=== PATIENT | male | born 1960 | race Caucasian/White ===

== ENCOUNTER 2022-06-13 19:16 | Inpatient (IN) ==
[2022-06-13 19:45] LABS: BASOPHILS % (AUTO) 0.4 % (0.2-1.0); HEMATOCRIT 39.4 % (42.0-54.0); LYMPHOCYTES # (AUTO) 0.3 X10^3/uL (1.3-2.9); LYMPHOCYTES % (AUTO) 2.7 % (21.0-51.0); MEAN CORPUSCULAR HGB CONC 35.7 g/dL (33.0-35.0); MEAN CORPUSCULAR VOLUME 89.7 fL (80.0-100.0); MEAN PLATELET VOLUME 8.2 fL (7.4-11.0); MONOCYTES # (AUTO) 0.1 x10^3/uL (0.3-0.8); MONOCYTES % (AUTO) 0.6 % (0.0-13.0); NEUTROPHILS # (AUTO) 10.7 x10^3/uL (2.2-4.8); NEUTROPHILS % (AUTO) 96.3 % (42.0-75.0); RED BLOOD COUNT 4.39 X10^6/uL (4.7-6.0); RED CELL DISTRIBUTION WIDTH 13.6 % (11.6-16.5); WHITE BLOOD COUNT 11.1 X10^3/uL (3.6-10.0)
[2022-06-13 19:53] LABS: ALANINE AMINOTRANSFERASE 85 Units/L (12-78); ALKALINE PHOSPHATASE 151 Units/L (46-116); ASPARTATE AMINO TRANSFERASE 66 Units/L (15-37); BLOOD UREA NITROGEN 18 mg/dL (7-18); CALCIUM 7.9 mg/dL (8.5-10.1); CARBON DIOXIDE 25.8 mmol/L (21-32); CHLORIDE 97 mmol/L (98-107); COR CA(FOR HYPOALB) 8.7 mg/dL (8.5-10.1); COR NA(FOR HYPERGLY) 132 mmol/L (136-145); CREATININE 1.29 mg/dL (0.70-1.30); SODIUM 131 mmol/L (136-145); TOTAL PROTEIN 6.2 g/dL (6.4-8.2); eGFR NON BLACK RACES > 60 (>60)
[2022-06-13 19:56] LABS: LACTIC ACID 1.5 mmol/L (0.4-2.0)
[2022-06-13 19:57] LABS: PLATELET MORPHOLOGY COMMENT NORMAL (NORMAL)
[2022-06-13] MEDS ORDERED: NS 1,000 ML IV 1,000 ML IV ONE ×2 (20:43→21:33)
[2022-06-13] MEDS ORDERED: NS 1,000 ML IV 1,000 ML ONE ×2 (20:43→21:34)
--- NOTE | 2022-06-13 21:03 | RAD ---
HISTORYWITH C/O FEVER, CHILLS, N/V X 1 WEEK. PT HAD RIGHT FOOT SURGERY 5 WEEKS AGO AND RECEIVING OUTPT IV ANTIBIOTICS VIA PICC LINE. Relevant Clinical InformationSTUDYCHEST, 1 VIEWCOMPARISONFINDINGSThe PICC line with tip in the right atrium in good position. The trachea is midline. The cardiac silhouette is borderline enlarged. There is mild interstitial prominence in the mid to lower lungs suggestive of mild atelectasis and possibly edema or atypical infection. There is no focal airspace opacity and no effusion. The bony thorax is unremarkable.IMPRESSION1. Right PICC line in good position. 2. Nonspecific bilateral interstitial opacity in the mid to lower lung zones.Electronically signed by: Eren Diego (Jun 13, 2022 21:02:06)
[2022-06-13 21:08] LABS: BILIRUBIN,URINE 1+ (NEGATIVE); BLOOD/HEMOGLOBIN,URINE 1+ (NEGATIVE); GLUCOSE, URINE NEGATIVE (NEGATIVE); KETONES,URINE NEGATIVE (NEGATIVE); LEUKOCYTE ESTERASE ,URINE NEGATIVE (NEGATIVE); NITRITES,URINE NEGATIVE (NEGATIVE); PROTEIN,URINE 3+ (NEGATIVE); UROBILINOGEN,URINE 2+ (NORMAL)
[2022-06-13 21:19] LABS: APPEARANCE,URINE CLOUDY (CLEAR); COLOR,URINE AMBER (YELLOW)
[2022-06-13 21:20] LABS: BACTERIA,URINE TRACE /HPF (NEGATIVE); GRANULAR CASTS,URINE MANY /LPF (NEGATIVE); HYALINE CASTS, URINE MANY /LPF (NEGATIVE); RBC,URINE 0-2 /HPF (0-3); SQUAMOUS EPITHELIAL CELL,UR RARE /HPF (NEGATIVE)
--- NOTE | 2022-06-13 21:32 | DR.FEVERAD ---
HPI Time seen Time Seen by Provider: 06/13/22 21:30 PCP Primary Care Physician: ISAURA HPI Comment HPI Comment: A 62 y/o male presnting via EMS with fever, chills and nausea + vomiting x 1 week. He has had a dose of Tylenol at home. He had a Rt/ foot and ankle surgery done about 5 weeks ago and is getting IV CUbicin via a PIC Line. Complaints/Symptoms Chief Complaint:: PT IN ED VIA STRETCHER PER [facility] WITH C/O FEVER, CHILLS, N/V X 1 WEEK. PT HAD RIGHT FOOT SURGERY 5 WEEKS AGO AND RECEIVING OUTPT IV ANTIBIOTICS VIA PICC LINE. Self Treatment fo Chief Complaint: ZOFRAN 4MG IV GIVEN PER EMS COVID-19 Coronavirus risk:travel/contact w/high risk person: No Has patient experienced Coronavirus symptoms: Yes Coronavirus symptoms experienced: Fever Nurses notes reviewed Nurses Notes Review: Yes Source History Provided: Patient Mode of Arrival Mode of Arrival: Stretcher Timing Onset of Chief Complaint: 06/06/22 Came on: Gradually Context Recent: Antibiotic Symptoms: Fever and Chills PMH PMH Past Medical History: Yes Past Medical History: Dyslipidemia Past Surgical History: Yes Surgical History: Ortho Surgery Past Surgical History Comment: RIGHT FOOT Family History History of Family Medical Conditions: No Social History Does any household member use tobacco: No Alcohol Use: None Do you use any recreational Drugs:: No Lives With: Family Lives Where: Home Travel Risk Coronavirus risk:travel/contact w/high risk person: No Has patient experienced Coronavirus symptoms: Yes Coronavirus symptoms experienced: Fever Infectious screening In the last 2 months have you had wt loss of >10#?: NO Have you had fever, night sweats or hemotysis?: No Have you traveled outside the country in the last 6 months?: No Isolation: Droplet ROS Review of Systems Constitutional: Chills, Diaphoresis and Fever Eyes: No Symptoms Reported ENTM: No Symptoms Reported Respiratoy: No Symptoms Reported Cardiovascular: No Symptoms Reported Gastrointestinal/Abdominal: Nausea and Vomiting Genitourinary: No Symptoms Reported Neurological: No Symptoms Reported Musculoskeletal: No Symptoms Reported Integumentary: No Symptoms Reported Hematologic/Lymphatic: No Symptoms Reported Endocrine: No Symptoms Reported Psychiatric: No Symptoms Reported All Other Systems: Reviewed and Negative PE Vital Signs Vitals: Temperature 98.2 F Pulse Rate 78 Respiratory Rate 20 Blood Pressure 91/57 O2 Sat by Pulse Oximetry 96 General Limitations: No Limitations and Other (diaphoretic) General Appearance: Alert and In No Apparent Distress Head Head Exam: Normal Inspection, Atraumatic and Normocephalic Eyes Eye exam: Normal Appearance and EOMI ENT ENT Exam: Normal Exam, Normal Oropharynx, Normal External Ear Exam and Mucous Membranes Moist Neck Neck Exam: Normal Inspection, Full ROM and Trachea Midline Respiratory Respiratory Exam: Normal Lung Sounds Bilat Cardiovascular Cardiovascular Exam: Regular Rate, Normal Rhythm, Normal Heart Sounds, +S1 and +S2 Abdominal Exam Abdominal Exam: Normal Inspection, Normal Bowel Sounds and Soft Extremities Extremities Exam: Full ROM and Other (Rt. foot ankle in dressing) Back Back Exam: Normal Inspection and Full ROM Neurologic Neurological Exam: Alert and Oriented X3 Psychiatric Psychiatric Exam: Normal Affect and Normal Mood Skin Skin Exam: Dry, Intact and Normal Color COURSE Treatment Treatment: In few of his fever, diaphoresis, hypotesion and leukocytosis (relative to his lab. value at 1530 hrs. today), I felt we should keep him in- house for treatment. I explained this to the pt. and his spouse and they were okay with this. I also spoke with his PCP, Dr. Rucker and he agrees with admission. The pt. already has had 2 L of NS and the 3rd bag is infusing currently. Plan is to cover with IV Vanco. + Zosyn. He may need low dose dopamine also. Reevaluation 1st: Improved Education/Counseling Education/Counseling: Patient, Family, Education and Counseling Educated On: Treatment, Diagnosis, Prognosis and Needs for Follow Up ROR Labs Reviewed Laboratory Results Reviewed?: Yes Result Diagrams: 06/13/22 19:33 06/13/22 19:33 Laboratory: WBC 11.1 X10^3/uL (3.6-10.0) H 06/13/22 19: RBC 4.39 X10^6/uL (4.7-6.0) L 06/13/22 19:33 Hgb 14.0 g/dL (13.5-18.0) 06/13/22 19:33 Hct 39.4 % (42.0-54.0) L 06/13/22 19:33 MCV 89.7 fL (80.0-100.0) 06/13/22 19: MCH 32.0 pg (27.0-34.0) 06/13/22 19: MCHC 35.7 g/dL (33.0-35.0) H 06/13/22 19: RDW 13.6 % (11.6-16.5) 06/13/22 19: Plt Count 102 X10^3/uL (150.0-450.0) L 06/13/22 19: Plt Count Comment Decreased (ADEQUATE) 06/13/22 19: MPV 8.2 fL (7.4-11.0) 06/13/22 19: Neut % (Auto) 96.3 % (42.0-75.0) H 06/13/22 19: Lymph % (Auto) 2.7 % (21.0-51.0) L 06/13/22 19: [place] % (Auto) 0.6 % (0.0-13.0) 06/13/22 19: Eos % (Auto) 0.0 % (0.9-2.9) L 06/13/22 19: Baso % (Auto) 0.4 % (0.2-1.0) 06/13/22 19: Neut # (Auto) 10.7 x10^3/uL (2.2-4.8) H 06/13/22 19: Lymph # (Auto) 0.3 X10^3/uL (1.3-2.9) L 06/13/22 19: [place] # (Auto) 0.1 x10^3/uL (0.3-0.8) L 06/13/22 19: Eos # (Auto) 0.0 x10^3/uL (0.0-0.2) 06/13/22 19: Baso # (Auto) 0.0 X10^3/uL (0.0-0.1) 06/13/22 19: Absolute Nucleated RBC 0.0 /100WBC 06/13/22 19: Total Counted 100 06/13/22 19: Neutrophils % (Manual) 93 % (39-76) H 06/13/22 19: Lymphocytes % (Manual) 4 % (13-43) L 06/13/22 19: Monocytes % (Manual) 3 % (4-9) L 06/13/22 19:33 Plt Morphology Comment Normal (NORMAL) 06/13/22 19:33 RBC Morphology Normal (NORMAL) 06/13/22 19:33 Sodium 131 mmol/L (136-145) L 06/13/22 19:33 Corrected Sodium 132 mmol/L (136-145) L 06/13/22 19:33 Potassium 3.3 mmol/L (3.5-5.1) L 06/13/22 19:33 Chloride 97 mmol/L (98-107) L 06/13/22 19:33 Carbon Dioxide 25.8 mmol/L (21-32) 06/13/22 19:33 BUN 18 mg/dL (7-18) 06/13/22 19:33 Creatinine 1.29 mg/dL (0.70-1.30) 06/13/22 19:33 Est GFR (MDRD) Af Amer > 60 (>60) 06/13/22 19:33 Est GFR (MDRD) Non-Af > 60 (>60) 06/13/22 19:33 Glucose 147 mg/dL (65-99) H 06/13/22 19:33 Lactic Acid 1.5 mmol/L (0.4-2.0) 06/13/22 19:33 Calcium 7.9 mg/dL (8.5-10.1) L 06/13/22 19:33 Corrected Calcium 8.7 mg/dL (8.5-10.1) 06/13/22 19:33 Total Bilirubin 0.90 mg/dL (0.2-1.0) 06/13/22 19:33 AST 66 Units/L (15-37) H 06/13/22 19:33 ALT 85 Units/L (12-78) H 06/13/22 19:33 Alkaline Phosphatase 151 Units/L (46-116) H 06/13/22 19:33 Total Protein 6.2 g/dL (6.4-8.2) L 06/13/22 19:33 Albumin 3.0 g/dL (3.4-5.0) L 06/13/22 19:33 Globulin 3.2 g/dL (2.5-4.5) 06/13/22 19:33 Albumin/Globulin Ratio 0.9 Ratio (1.1-2.1) L 06/13/22 19:33 Specimen Type Clean catch urine 06/13/22 21:00 Urine Color Elsa (YELLOW) 06/13/22 21:00 Urine Appearance Cloudy (CLEAR) 06/13/22 21:00 Urine pH 6.0 (5.0 - 8.0) 06/13/22 21:00 Ur Specific [place] 1.030 (1.000-1.030) 06/13/22 21:00 Urine Protein 3+ (NEGATIVE) 06/13/22 21:00 Urine Glucose (UA) Negative (NEGATIVE) 06/13/22 21:00 Urine Ketones Negative (NEGATIVE) 06/13/22 21:00 Urine Blood 1+ (NEGATIVE) 06/13/22 21:00 Urine Nitrite Negative (NEGATIVE) 06/13/22 21:00 Urine Bilirubin 1+ (NEGATIVE) 06/13/22 21:00 Urine Urobilinogen 2+ (NORMAL) 06/13/22 21:00 Ur Leukocyte Esterase Negative (NEGATIVE) 06/13/22 21:00 Urine RBC 0-2 /HPF (0-3) 06/13/22 21:00 Urine WBC None seen /HPF (0-5) 06/13/22 21:00 Ur Squamous Epith Cells Rare /HPF (NEGATIVE) 06/13/22 21:00 Amorphous Sediment 3+ /HPF (NEGATIVE) 06/13/22 21:00 Urine Bacteria Trace /HPF (NEGATIVE) 06/13/22 21:00 Hyaline Casts Many /LPF (NEGATIVE) 06/13/22 21:00 Granular Casts Many /LPF (NEGATIVE) 06/13/22 21:00 Ur Culture Indicated? No/not indicated 06/13/22 21:00 SARS-CoV-2 (PCR) Negative (NEGATIVE) 06/13/22 19:37 Influenza Type A (PCR) Negative (NEGATIVE) 06/13/22 19:37 Influenza Type B (PCR) Negative (NEGATIVE) 06/13/22 19:37 RSV (PCR) Negative (NEGATIVE) 06/13/22 19:37 XRAY X-ray Results: Name: BROOKS IBARRA : 1960 Sex: M Location: Order Number(s): [id number] Procedure(s):CHEST, 1 VIEW Ordering Physician: DEVIKA MAY Primary Care: Taye Rucker Service Date: 06/13/22 Service Time: 1915 HISTORY WITH C/O FEVER, CHILLS, N/V X 1 WEEK. PT HAD RIGHT FOOT SURGERY 5 WEEKS AGO AND RECEIVING OUTPT IV ANTIBIOTICS VIA PICC LINE. Relevant Clinical Information STUDY CHEST, 1 VIEW COMPARISON FINDINGS The PICC line with tip in the right atrium in good position. The trachea is midline. The cardiac silhouette is borderline enlarged. There is mild interstitial prominence in the mid to lower lungs suggestive of mild atelectasis and possibly edema or atypical infection. There is no focal airspace opacity and no effusion. The bony thorax is unremarkable. IMPRESSION 1. Right PICC line in good position. 2. Nonspecific bilateral interstitial opacity in the mid to lower lung zones. Electronically signed by: Eren Diego (Jun 13, 2022 21:02:06) Report Electronically signed: [id number] CC: Devika May Opioid Opioid Risk Tool Age (Jacob box if 16-45): No History of Preadolescent Sexual Abuse: No Total: 0 Total Score Risk Category: Low Risk Copyright: Eleuterio ZHAO predicting aberrant behaviors Discharge Plan Diagnosis Discharge Problem: Acute hypotension, Fever in adult, Acute hypokalemia Discharge Plan Patient Disposition: ADMITTED INPATIENT Condition: Stable Health Concerns: Post Hospitalization: new medications and changes needed to prevent readmission or further decline. Pt educated and given instructions on all concerns. Plan of Treatment: Continue with present treatment and follow up plan. Pt is to keep follow up appointment as instructed and take medications as ordered. Orders to Discharge Patient Discharge Orders: Transfer (Routine); Ordered 06/13/22 Ordered By: DEVIKA MAY Follow ups/Referrals Follow ups/Referrals: Taye Rucker [Primary Care Provider] - 3 days
[2022-06-13] MEDS ORDERED: DOPAMINE IV PREMIX 400 MG/250 ML 400 MG/250 ML BAG IV ONE ×2 (22:34)
[2022-06-13] MEDS ORDERED: DOPAMINE IV PREMIX 400 MG/250 ML 400 MG/250 ML BAG IV PRN (22:37)
[2022-06-13 23:42] VITALS: BMI 29.7
[2022-06-13] MEDS ORDERED: SALINE 0.9% 3 ML NEB TX ONE (23:54)
[2022-06-14] MEDS ORDERED: VANCOMYCIN IV *PREMIX 1.75 G/350 ML BAG 1.75 G/350 ML PIGGYBACK IV ONE
[2022-06-14] MEDS: NS 1,000 ML IV 1,000 ML IV SCH ×6 (00:13→23:10)
[2022-06-14] MEDS: ZOSYN VIAL 3.375 GRAMS 3.375 G in NS 100 ML IV 100 ML IV SCH ×4 (00:14→21:54)
[2022-06-14] MEDS ORDERED: POTASSIUM CHLORIDE LIQ 20 MEQ UDC PO PRN (00:15)
[2022-06-14] MEDS ORDERED: MICRO K EXTEN CAP 10 MEQ PO PRN (00:15)
[2022-06-14] MEDS ORDERED: K-RIDER 10 MEQ/NS 100 ML 10 MEQ/100 ML BAG IV PRN (00:15)
[2022-06-14] MEDS ORDERED: KLOR-CON PO PRN (00:15)
[2022-06-14] MEDS ORDERED: POTASSIUM CHL 40 MEQ/NS 0.45% 500 ML IV PRN (00:15)
[2022-06-14] MEDS ORDERED: POTASSIUM CHL 60 MEQ/NS 0.45% 500 ML IV PRN (00:15)
[2022-06-14] MEDS ORDERED: K-DUR TAB 20 MEQ PO PRN (00:15)
[2022-06-14] MEDS: FIORICET TAB PO PRN ×4 (00:38→21:09)
[2022-06-14] MEDS: XOPENEX 1.25 MG/3 ML NEBULE NEB SCH ×4 (00:45→16:47)
[2022-06-14] MEDS: MAGNESIUM SULFATE 1 GRAM/100 mL PREMIX 1 G/100 ML BAG IV PRN ×2 (04:55→06:30)
[2022-06-14 05:12] LABS: BASOPHILS % (AUTO) 0.3 % (0.2-1.0); HEMATOCRIT 38.4 % (42.0-54.0); HEMOGLOBIN 13.4 g/dL (13.5-18.0); LYMPHOCYTES # (AUTO) 0.7 X10^3/uL (1.3-2.9); LYMPHOCYTES % (AUTO) 8.1 % (21.0-51.0); MEAN CORPUSCULAR HEMOGLOBIN 31.8 pg (27.0-34.0); MEAN CORPUSCULAR HGB CONC 34.9 g/dL (33.0-35.0); MEAN CORPUSCULAR VOLUME 91.1 fL (80.0-100.0); MEAN PLATELET VOLUME 8.6 fL (7.4-11.0); MONOCYTES # (AUTO) 0.3 x10^3/uL (0.3-0.8); MONOCYTES % (AUTO) 3.5 % (0.0-13.0); NEUTROPHILS # (AUTO) 7.4 x10^3/uL (2.2-4.8); NEUTROPHILS % (AUTO) 88.1 % (42.0-75.0); RED BLOOD COUNT 4.21 X10^6/uL (4.7-6.0); RED CELL DISTRIBUTION WIDTH 13.5 % (11.6-16.5); WHITE BLOOD COUNT 8.4 X10^3/uL (3.6-10.0)
[2022-06-14 05:22] LABS: ALANINE AMINOTRANSFERASE 75 Units/L (12-78); ALBUMIN 2.8 g/dL (3.4-5.0); ALKALINE PHOSPHATASE 144 Units/L (46-116); ASPARTATE AMINO TRANSFERASE 56 Units/L (15-37); BLOOD UREA NITROGEN 17 mg/dL (7-18); CALCIUM 7.6 mg/dL (8.5-10.1); CARBON DIOXIDE 26.1 mmol/L (21-32); CHLORIDE 103 mmol/L (98-107); COR CA(FOR HYPOALB) 8.6 mg/dL (8.5-10.1); COR NA(FOR HYPERGLY) 138 mmol/L (136-145); CREATININE 1.17 mg/dL (0.70-1.30); SODIUM 137 mmol/L (136-145); eGFR NON BLACK RACES > 60 (>60)
[2022-06-14] MEDS: VANCOMYCIN IV *PREMIX 1 G/200 ML BAG 1 G/200 ML PIGGYBACK IV SCH ×2 (08:38→20:30)
[2022-06-14] MEDS: LOVENOX INJ 40 MG SYR SC SCH (10:49)
[2022-06-14] MEDS: SANTYL EXT SCH (10:50)
[2022-06-14] MEDS: TYLENOL 325 MG TAB PO PRN (12:16)
[2022-06-14] MEDS: Atrovent NEB TX 0.02% NEB SCH (20:34)
[2022-06-14] MEDS ORDERED: MAALOX or MYLANTA PO PRN (23:08)
[2022-06-15] MEDS: NS 1,000 ML IV 1,000 ML IV SCH ×5 (01:00→19:31)
[2022-06-15] MEDS: ZOSYN VIAL 3.375 GRAMS 3.375 G in NS 100 ML IV 100 ML IV SCH (05:11)
[2022-06-15 05:23] LABS: EOSINOPHILS # (AUTO) 0.1 x10^3/uL (0.0-0.2); EOSINOPHILS % (AUTO) 1.5 % (0.9-2.9); HEMATOCRIT 36.3 % (42.0-54.0); HEMOGLOBIN 12.6 g/dL (13.5-18.0); LYMPHOCYTES # (AUTO) 0.9 X10^3/uL (1.3-2.9); LYMPHOCYTES % (AUTO) 21.2 % (21.0-51.0); MEAN CORPUSCULAR HEMOGLOBIN 31.7 pg (27.0-34.0); MEAN CORPUSCULAR HGB CONC 34.6 g/dL (33.0-35.0); MEAN CORPUSCULAR VOLUME 91.5 fL (80.0-100.0); MEAN PLATELET VOLUME 9.2 fL (7.4-11.0); MONOCYTES # (AUTO) 0.4 x10^3/uL (0.3-0.8); MONOCYTES % (AUTO) 10.4 % (0.0-13.0); NEUTROPHILS # (AUTO) 2.7 x10^3/uL (2.2-4.8); NEUTROPHILS % (AUTO) 65.9 % (42.0-75.0); RED BLOOD COUNT 3.97 X10^6/uL (4.7-6.0); RED CELL DISTRIBUTION WIDTH 13.7 % (11.6-16.5); WHITE BLOOD COUNT 4.1 X10^3/uL (3.6-10.0)
[2022-06-15 05:29] LABS: ALANINE AMINOTRANSFERASE 76 Units/L (12-78); ALBUMIN 2.6 g/dL (3.4-5.0); ALKALINE PHOSPHATASE 167 Units/L (46-116); ASPARTATE AMINO TRANSFERASE 68 Units/L (15-37); BLOOD UREA NITROGEN 13 mg/dL (7-18); CALCIUM 7.5 mg/dL (8.5-10.1); CARBON DIOXIDE 26.4 mmol/L (21-32); CHLORIDE 105 mmol/L (98-107); COR CA(FOR HYPOALB) 8.6 mg/dL (8.5-10.1); CREATININE 0.85 mg/dL (0.70-1.30); SODIUM 138 mmol/L (136-145); TOTAL PROTEIN 5.6 g/dL (6.4-8.2); eGFR NON BLACK RACES > 60 (>60)
[2022-06-15] MEDS: Atrovent NEB TX 0.02% NEB SCH ×4 (08:05→20:15)
[2022-06-15] MEDS ORDERED: AMBIEN PO PRN (08:19)
[2022-06-15 08:48] LABS: CREATININE 0.84 mg/dL (0.70-1.30)
[2022-06-15] MEDS ORDERED: PHENERGAN TAB 25 MG PO ONE (08:57)
[2022-06-15] MEDS ORDERED: ZOFRAN INJ 4 MG VIAL IVP PRN (08:59)
[2022-06-15] MEDS: PHENERGAN TAB 25 MG PO PRN (09:00)
[2022-06-15] MEDS ORDERED: ZOFRAN INJ 4 MG VIAL IVP SCH (09:00)
[2022-06-15] MEDS: SANTYL EXT SCH (09:08)
[2022-06-15 09:43] LABS: VANCOMYCIN,TROUGH 7.7 ug/mL (15-20)
--- NOTE | 2022-06-15 09:47 | DR.H&P ---
H&P - History & Physical for Day of: H&P Date: 06/14/22 - Chief Complaint Chief Complaint: FEVER, CHILLS, NAUSEA, VOMITING - History of Present Illness History of Present Illness: IS A 62 YEAR OLD PATIENT OF OURS. HE PRESENTED TO THE ER WITH COMPLAINTS OF FEVER, CHILLS, NAUSEA, AND VOMITING X 1 WEEK. HE REPORTS HAVING RIGHT FOOT AND ANKLE SURGERY FIVE WEEKS AGO AND IS CURRENTLY RECEIVING IV CUBICIN VIA PICC LINE FOR TREATMENT OF MRSA. HE HAS TAKEN TYLENOL AND ZOFRAN AT HOME WITHOUT SIGNIFICANT IMPROVEMENT IN SYMPTOMS. UPON EXAMINATION, THERE WAS A 1CMX2.5CM WOUND NOTED TO THE RIGHT HEEL. SCABS HAVE FORMED OVER WOUND. ONLY A MINIMAL AMOUNT OF DRAINAGE NOTED. PATIENT REPORTS THAT THEY USE SANTYL OINTMENT ON WOUND DAILY. ON ARRIVAL, HIS VITALS WERE: 98.2-93-20-94%-106/66. SHORTLY AFTER, BLOOD PRESSURE DROPPED TO 81/51. LABS WERE OBTAINED. WBC 11.1, RBC 4.39, HGB 14.0, HCT 39.4, PLT COUNT 102, SODIUM 131, POTASSIUM 3.3, CHLORIDE 97, BUN 18, CREATININE 1.29, GLUCOSE 147, LACTIC ACID 1.5, CALCIUM 7.9, MAGNESIUM 1.5, AST 66, ALT 85, ALK PHOS 151, TOTAL PROTEIN 6.2, ALBUMIN 3.0, MAGNESIUM 1.5. URINALYSIS WAS OBTAINED AND WAS UNREMARKABLE. COVID, INFLUENZA, AND RSV NEGATIVE. BLOOD CULTURES WERE SET UP. A CHEST XRAY WAS OBTAINED AND REVEALED: 1. Right PICC line in good position. 2. Nonspecific bilateral interstitial opacity in the mid to lower lung zones. IN THE ER, SHE WAS GIVEN A NORMAL SALINE BOLUS X 2 LITERS. HE REMAINED HYPOTENSIVE. A DOPAMINE DRIP WAS STARTED. HE WAS ADMITTED TO THE HOSPITAL FOR FURTHER EVALUATION AND TREATMENT OF SEPSIS, HYPOTENSION, HYPONATREMIA, HYPOKALEMIA. HE WAS STARTED ON NORMAL SALINE AT 125 ML/HR, ZOSYN 3.375G IV TID, VANCOMYCIN 1G IV Q12H, DOPAMINE DRIP, THE POTASSIUM AND MAGENSIUM PROTOCOLS, ZOFRAN 4MG IV Q8H PRN, AND HIS HOME MEDICATIONS WERE RESUMED. WE WILL REMOVE PICC LINE AND CULTURE. WE WILL ALSO OBTAIN A WOUND CULTURE OF WOUND TO THE RIGHT HEEL. OTHERWISE, WE WILL FOLLOW-UP WITH AM LABS AND CONTINUE TO MONITOR. TIME SPENT ON CLINICAL ASSESSMENT, REVIWING LABS AND IMAGING, DECISION MAKING, AND DOCUMENTATION GREATER THAN 75 MINUTES. - Past Medical History Past Medical History: Dyslipidemia - Past Surgical History Surgical History: Ortho Surgery - Social History Does patient currently use any type of tobacco product: No Have you used tobacco products in the last 12 months: Yes Type of Tobacco Use: Cigarettes How many years tobacco product used: 40 Does any household member use tobacco: No Alcohol Use: None Drug Use: None - Medications Home Medications: sulfamethoxazole [From Bactrim] Adverse Reaction (Verified 04/28/20 11:42) trimethoprim [From Bactrim] Adverse Reaction (Verified 04/28/20 11:42) CONTINUE taking the following medications gabapentin 300 mg capsule 1 cap PO QPM 06/14/22 [History] indomethacin 50 mg capsule 1 cap PO QPM 06/14/22 [History] simvastatin 40 mg tablet 1 tab PO QPM 06/14/22 [History] - Review of Systems Constitutional: Fever, Chills, Weakness Eyes: No Symptoms Reported ENT: No Symptoms Reported Respiratory: No Symptoms Reported Cardiovascular: [place] Gastrointestinal: See HPI, Nausea, Vomiting. denies: Abdominal Pain, Diarrhea, Constipation, Melena, Hematochezia Genitourinary: No Symptoms Reported Musculoskeletal: Foot Pain Skin: See HPI, Wound (HEEL OF RIGHT FOOT ) Neurological: Weakness - Physical Exam Vital Signs: Temperature 98.3 F Pulse Rate 65 Respiratory Rate 22 Blood Pressure 134/74 O2 Sat by Pulse Oximetry 93 Oriented: Normal Eyes: Normal Ear: Normal Nose: Normal Throat: Normal Respiratory: Clear Throughout Cardiovascular: Normal : Normal Auscultation: Bowel Sounds: Normal Palpation: Normal Tenderness: Normal Skin: Wound (1CMX2.5CM SCABBED OVER WOUND ) Musculoskeletal: Right, Foot, Tender Psychiatric: Normal Mood Description: Calm Affect: Normal Speech Pattern: Clear - Assessment/Plan (1) Sepsis Qualifiers: Sepsis type: sepsis due to unspecified organism Sepsis acute organ dysfunction status: unspecified Qualified Code(s): A41.9 - Sepsis, unspecified organism Status: Acute Plan: ADMIT, NORMAL SALINE AT 125 ML/HR, ZOSYN 3.375G IV TID, VANCOMYCIN 1G IV Q12H, DOPAMINE DRIP, THE POTASSIUM AND MAGENSIUM PROTOCOLS, ZOFRAN 4MG IV Q8H PRN, AND HIS HOME MEDICATIONS WERE RESUMED. (2) Acute hypotension Status: Acute (3) Acute hypokalemia Status: Acute (4) Hyponatremia Status: Acute - Allergies Allergies/Adverse Reactions: Allergies Allergy/AdvReac Type Severity Reaction Status Date / Time sulfamethoxazole AdvReac Verified 04/28/20 11:42 [From Bactrim] trimethoprim [From Bactrim] AdvReac Verified 04/28/20 11:42
[2022-06-15] MEDS: LEVAQUIN PREMIX IV 750 MG 750 MG/150 ML BAG IV SCH (10:00)
[2022-06-15] MEDS: VANCOMYCIN IV *PREMIX 1.25 G/250 ML BAG 1.25 G/250 ML PIGGYBACK IV SCH ×2 (11:29→20:22)
[2022-06-15] MEDS ORDERED: STERILE WATER IRRIGATION IR ONE (20:22)
[2022-06-15] MEDS ORDERED: PHARMACY COMMENT IV NR (20:30)
[2022-06-16] MEDS: NS 1,000 ML IV 1,000 ML IV SCH ×4 (01:39→16:27)
[2022-06-16 04:48] LABS: EOSINOPHILS # (AUTO) 0.1 x10^3/uL (0.0-0.2); EOSINOPHILS % (AUTO) 2.1 % (0.9-2.9); HEMATOCRIT 36.6 % (42.0-54.0); HEMOGLOBIN 12.7 g/dL (13.5-18.0); LYMPHOCYTES # (AUTO) 1.2 X10^3/uL (1.3-2.9); MEAN CORPUSCULAR HEMOGLOBIN 31.5 pg (27.0-34.0); MEAN CORPUSCULAR HGB CONC 34.7 g/dL (33.0-35.0); MEAN CORPUSCULAR VOLUME 90.8 fL (80.0-100.0); MEAN PLATELET VOLUME 8.9 fL (7.4-11.0); MONOCYTES # (AUTO) 0.4 x10^3/uL (0.3-0.8); NEUTROPHILS % (AUTO) 52.9 % (42.0-75.0); RED BLOOD COUNT 4.03 X10^6/uL (4.7-6.0); RED CELL DISTRIBUTION WIDTH 13.7 % (11.6-16.5); WHITE BLOOD COUNT 3.7 X10^3/uL (3.6-10.0)
[2022-06-16 04:59] LABS: ALANINE AMINOTRANSFERASE 73 Units/L (12-78); ALBUMIN 2.8 g/dL (3.4-5.0); ALKALINE PHOSPHATASE 239 Units/L (46-116); ASPARTATE AMINO TRANSFERASE 58 Units/L (15-37); BLOOD UREA NITROGEN 11 mg/dL (7-18); CALCIUM 7.9 mg/dL (8.5-10.1); CARBON DIOXIDE 28.3 mmol/L (21-32); CHLORIDE 105 mmol/L (98-107); COR CA(FOR HYPOALB) 8.9 mg/dL (8.5-10.1); CREATININE 0.93 mg/dL (0.70-1.30); SODIUM 139 mmol/L (136-145); TOTAL PROTEIN 5.9 g/dL (6.4-8.2); eGFR NON BLACK RACES > 60 (>60)
[2022-06-16] MEDS: VANCOMYCIN IV *PREMIX 1.25 G/250 ML BAG 1.25 G/250 ML PIGGYBACK IV SCH ×2 (08:06→21:48)
[2022-06-16] MEDS: Atrovent NEB TX 0.02% NEB SCH ×4 (08:27→21:15)
[2022-06-16] MEDS: LEVAQUIN PREMIX IV 750 MG 750 MG/150 ML BAG IV SCH (09:27)
[2022-06-16] MEDS: LOVENOX INJ 40 MG SYR SC SCH (09:39)
[2022-06-16] MEDS: TYLENOL 325 MG TAB PO PRN (11:42)
--- NOTE | 2022-06-16 16:06 | RAD ---
HISTORYSOBSTUDYAP [id number]/[id number] heart size. No definite pulmonary, hilar or pleural abnormality is now identified. There is no evidence for pneumonia, atelectasis, pulmonary edema or pleural fluid. The previous PICC is no longer identified.IMPRESSIONNo acute chest findings.Electronically signed by: KIMBERLEY ESCOTO (Jun 16, 2022 16:05:35)
--- NOTE | 2022-06-16 17:03 | PCM.PROG ---
Progress Note Progress Note for Day of Date of Exam: 06/16/22 Subjective Subjective: Patient is doing well this morning with no new complaints. There were no acute problems over the night. Labs were reviewed within normal limits overall. Current vital signs are stable. His O2 sat is 95% on room air. He has no new request this morning. Past Medical Family Social History Allergies: Allergies sulfamethoxazole [From Bactrim] Adverse Reaction (Verified 04/28/20 11:42) trimethoprim [From Bactrim] Adverse Reaction (Verified 04/28/20 11:42) Vital Signs and I&O's Vital Signs: Temperature 98.4 F Pulse Rate [Left] 54 Pulse Rate 66 Respiratory Rate 18 Blood Pressure [Left Arm] 147/77 Blood Pressure 126/73 O2 Sat by Pulse Oximetry 95 Intake and Output: Intake & Output 06/14/22 06/15/22 06/16/22 06/17/22 11:59 11:59 11:59 11:59 Intake Total 628 / 628 3895 / 3895 5201 / 5201 1600 / 1600 Output Total 2600 / 2600 2400 / 2400 700 / 700 Balance -1971 / -1971 1495 / 1495 4501 / 4501 1600 / 1600 Physical Exam Oriented: Normal Eyes: Normal Ear: Normal Nose: Normal Throat: Normal Respiratory: Normal Cardiovascular: Normal : Normal Auscultation: Bowel Sounds: Normal Tenderness: Normal Skin: Wound (1CMX2.5CM SCABBED OVER WOUND ) Musculoskeletal: Right, Foot and Tender Psychiatric: Normal Mood Description: Calm Affect: Normal Speech Pattern: Clear and Appropriate Laboratory and Diagnostics Result Diagrams: 06/16/22 04:05 06/16/22 04:05 Labs: 06/14/22 10:51 Foot - Right Wound Gram Stain - Final 06/14/22 10:51 Foot - Right Wound Culture - Preliminary 06/14/22 09:00 Catheter Tip - Other - Preliminary Laboratory WBC 3.7 X10^3/uL (3.6-10.0) 06/16/22 04:05 RBC 4.03 X10^6/uL (4.7-6.0) L 06/16/22 04:05 Hgb 12.7 g/dL (13.5-18.0) L 06/16/22 04:05 Hct 36.6 % (42.0-54.0) L 06/16/22 04:05 MCV 90.8 fL (80.0-100.0) 06/16/22 04:05 MCH 31.5 pg (27.0-34.0) 06/16/22 04:05 MCHC 34.7 g/dL (33.0-35.0) 06/16/22 04:05 RDW 13.7 % (11.6-16.5) 06/16/22 04:05 Plt Count 101 X10^3/uL (150.0-450.0) L 06/16/22 04:05 Plt Count Comment Decreased (ADEQUATE) 06/13/22 19:33 MPV 8.9 fL (7.4-11.0) 06/16/22 04:05 Neut % (Auto) 52.9 % (42.0-75.0) 06/16/22 04:05 Lymph % (Auto) 33.0 % (21.0-51.0) 06/16/22 04:05 [place] % (Auto) 11.0 % (0.0-13.0) 06/16/22 04:05 Eos % (Auto) 2.1 % (0.9-2.9) 06/16/22 04:05 Baso % (Auto) 1.0 % (0.2-1.0) 06/16/22 04:05 Neut # (Auto) 2.0 x10^3/uL (2.2-4.8) L 06/16/22 04:05 Lymph # (Auto) 1.2 X10^3/uL (1.3-2.9) L 06/16/22 04:05 [place] # (Auto) 0.4 x10^3/uL (0.3-0.8) 06/16/22 04:05 Eos # (Auto) 0.1 x10^3/uL (0.0-0.2) 06/16/22 04:05 Baso # (Auto) 0.0 X10^3/uL (0.0-0.1) 06/16/22 04:05 Absolute Nucleated RBC 0.1 /100WBC 06/16/22 04:05 Total Counted 100 06/13/22 19:33 Neutrophils % (Manual) 93 % (39-76) H 06/13/22 19:33 Lymphocytes % (Manual) 4 % (13-43) L 06/13/22 19:33 Monocytes % (Manual) 3 % (4-9) L 06/13/22 19:33 Plt Morphology Comment Normal (NORMAL) 06/13/22 19:33 RBC Morphology Normal (NORMAL) 06/13/22 19:33 Sodium 139 mmol/L (136-145) 06/16/22 04:05 Corrected Sodium TNP 06/16/22 04:05 Potassium 4.0 mmol/L (3.5-5.1) 06/16/22 04:05 Chloride 105 mmol/L (98-107) 06/16/22 04:05 Carbon Dioxide 28.3 mmol/L (21-32) 06/16/22 04:05 BUN 11 mg/dL (7-18) 06/16/22 04:05 Creatinine 0.93 mg/dL (0.70-1.30) 06/16/22 04:05 Est GFR (MDRD) Af Amer > 60 (>60) 06/16/22 04:05 Est GFR (MDRD) Non-Af > 60 (>60) 06/16/22 04:05 Glucose 88 mg/dL (65-99) 06/16/22 04:05 POC Glucose (mg/dL) 112 mg/dL (65-99) H 06/14/22 15:47 Hemoglobin A1c 5.7 % 06/14/22 04:05 Lactic Acid 2.0 mmol/L (0.4-2.0) 06/14/22 08:50 Calcium 7.9 mg/dL (8.5-10.1) L 06/16/22 04:05 Corrected Calcium 8.9 mg/dL (8.5-10.1) 06/16/22 04:05 Magnesium 2.3 mg/dL (1.7-2.9) 06/14/22 08:50 Total Bilirubin 0.40 mg/dL (0.2-1.0) 06/16/22 04:05 AST 58 Units/L (15-37) H 06/16/22 04:05 ALT 73 Units/L (12-78) 06/16/22 04:05 Alkaline Phosphatase 239 Units/L (46-116) H 06/16/22 04:05 C-Reactive Protein 53.60 mg/L (0-3.0) H 06/16/22 04:05 Total Protein 5.9 g/dL (6.4-8.2) L 06/16/22 04:05 Albumin 2.8 g/dL (3.4-5.0) L 06/16/22 04:05 Globulin 3.1 g/dL (2.5-4.5) 06/16/22 04:05 Albumin/Globulin Ratio 0.9 Ratio (1.1-2.1) L 06/16/22 04:05 Specimen Type Clean catch urine 06/13/22 21:00 Urine Color Elsa (YELLOW) 06/13/22 21:00 Urine Appearance Cloudy (CLEAR) 06/13/22 21:00 Urine pH 6.0 (5.0 - 8.0) 06/13/22 21:00 Ur Specific [place] 1.030 (1.000-1.030) 06/13/22 21:00 Urine Protein 3+ (NEGATIVE) 06/13/22 21:00 Urine Glucose (UA) Negative (NEGATIVE) 06/13/22 21:00 Urine Ketones Negative (NEGATIVE) 06/13/22 21:00 Urine Blood 1+ (NEGATIVE) 06/13/22 21:00 Urine Nitrite Negative (NEGATIVE) 06/13/22 21:00 Urine Bilirubin 1+ (NEGATIVE) 06/13/22 21:00 Urine Urobilinogen 2+ (NORMAL) 06/13/22 21:00 Ur Leukocyte Esterase Negative (NEGATIVE) 06/13/22 21:00 Urine RBC 0-2 /HPF (0-3) 06/13/22 21:00 Urine WBC None seen /HPF (0-5) 06/13/22 21:00 Ur Squamous Epith Cells Rare /HPF (NEGATIVE) 06/13/22 21:00 Amorphous Sediment 3+ /HPF (NEGATIVE) 06/13/22 21:00 Urine Bacteria Trace /HPF (NEGATIVE) 06/13/22 21:00 Hyaline Casts Many /LPF (NEGATIVE) 06/13/22 21:00 Granular Casts Many /LPF (NEGATIVE) 06/13/22 21:00 Ur Culture Indicated? No/not indicated 06/13/22 21:00 Vancomycin Trough 7.7 ug/mL (15-20) L 06/15/22 08:34 SARS-CoV-2 (PCR) Negative (NEGATIVE) 06/13/22 19:37 Influenza Type A (PCR) Negative (NEGATIVE) 06/13/22 19:37 Influenza Type B (PCR) Negative (NEGATIVE) 06/13/22 19:37 RSV (PCR) Negative (NEGATIVE) 06/13/22 19:37 Plan (1) Sepsis: Status: Acute Qualifiers: Sepsis type: sepsis due to unspecified organism Sepsis acute organ dysfunction status: unspecified Qualified Code(s): A41.9 - Sepsis, unspecified organism Plan: ADMIT, NORMAL SALINE AT 125 ML/HR, ZOSYN 3.375G IV TID, VANCOMYCIN 1G IV Q12H, DOPAMINE DRIP, THE POTASSIUM AND MAGENSIUM PROTOCOLS, ZOFRAN 4MG IV Q8H PRN, AND HIS HOME MEDICATIONS WERE RESUMED. (2) Acute hypotension: Status: Acute (3) Acute hypokalemia: Status: Acute (4) Hyponatremia: Status: Acute
[2022-06-16] MEDS ORDERED: PHARMACY COMMENT IV NR (20:30)
[2022-06-16 21:39] LABS: CREATININE 1.06 mg/dL (0.70-1.30); VANCOMYCIN,TROUGH 9.4 ug/mL (15-20)
[2022-06-16] MEDS: MELATONIN PO SCH (22:45)
[2022-06-17] MEDS: NS 1,000 ML IV 1,000 ML IV SCH ×4 (01:03→17:22)
[2022-06-17 05:36] LABS: BASOPHILS % (AUTO) 0.8 % (0.2-1.0); EOSINOPHILS # (AUTO) 0.2 x10^3/uL (0.0-0.2); EOSINOPHILS % (AUTO) 3.8 % (0.9-2.9); HEMATOCRIT 36.1 % (42.0-54.0); HEMOGLOBIN 12.5 g/dL (13.5-18.0); LYMPHOCYTES # (AUTO) 1.3 X10^3/uL (1.3-2.9); LYMPHOCYTES % (AUTO) 26.8 % (21.0-51.0); MEAN CORPUSCULAR HEMOGLOBIN 31.6 pg (27.0-34.0); MEAN CORPUSCULAR HGB CONC 34.6 g/dL (33.0-35.0); MEAN CORPUSCULAR VOLUME 91.3 fL (80.0-100.0); MEAN PLATELET VOLUME 8.5 fL (7.4-11.0); MONOCYTES # (AUTO) 0.4 x10^3/uL (0.3-0.8); MONOCYTES % (AUTO) 8.9 % (0.0-13.0); NEUTROPHILS # (AUTO) 2.8 x10^3/uL (2.2-4.8); NEUTROPHILS % (AUTO) 59.7 % (42.0-75.0); RED BLOOD COUNT 3.95 X10^6/uL (4.7-6.0); RED CELL DISTRIBUTION WIDTH 13.4 % (11.6-16.5); WHITE BLOOD COUNT 4.7 X10^3/uL (3.6-10.0)
[2022-06-17 05:54] LABS: ALANINE AMINOTRANSFERASE 85 Units/L (12-78); ALBUMIN 2.8 g/dL (3.4-5.0); ALKALINE PHOSPHATASE 300 Units/L (46-116); ASPARTATE AMINO TRANSFERASE 61 Units/L (15-37); BLOOD UREA NITROGEN 15 mg/dL (7-18); CARBON DIOXIDE 29.2 mmol/L (21-32); CHLORIDE 105 mmol/L (98-107); CREATININE 0.92 mg/dL (0.70-1.30); SODIUM 139 mmol/L (136-145); TOTAL PROTEIN 5.9 g/dL (6.4-8.2); eGFR NON BLACK RACES > 60 (>60)
[2022-06-17] MEDS: TYLENOL 325 MG TAB PO PRN ×3 (07:38→22:50)
[2022-06-17] MEDS: PHENERGAN TAB 25 MG PO PRN (07:42)
[2022-06-17] MEDS: LEVAQUIN PREMIX IV 750 MG 750 MG/150 ML BAG IV SCH ×2 (08:06→10:07)
[2022-06-17] MEDS: LOVENOX INJ 40 MG SYR SC SCH (08:07)
[2022-06-17] MEDS: Atrovent NEB TX 0.02% NEB SCH ×4 (08:41→22:59)
[2022-06-17] MEDS: VANCOMYCIN IV *PREMIX 1.5 G/300 ML BAG 1.5 G/300 ML PIGGYBACK IV SCH ×2 (09:52→20:26)
--- NOTE | 2022-06-17 16:50 | PCM.PROG ---
Progress Note Progress Note for Day of Date of Exam: 06/17/22 Subjective Subjective: The patient reports getting nauseated aided and vomiting after eating his eggs this morning for breakfast. He had no acute problems overnight. His labs look fine this morning vital signs are stable he is afebrile. He has Zofran and Phenergan ordered for nausea and vomiting when needed. Past Medical Family Social History Allergies: Allergies sulfamethoxazole [From Bactrim] Adverse Reaction (Verified 04/28/20 11:42) trimethoprim [From Bactrim] Adverse Reaction (Verified 04/28/20 11:42) Review of Systems ROS: No change since H&P Vital Signs and I&O's Vital Signs: Temperature 97.6 F Pulse Rate [Left] 62 Pulse Rate 66 Respiratory Rate 18 Blood Pressure [Left Arm] 133/81 Blood Pressure 126/73 O2 Sat by Pulse Oximetry 95 Intake and Output: Intake & Output 06/15/22 06/16/22 06/17/22 06/18/22 11:59 11:59 11:59 11:59 Intake Total 3895 / 3895 5201 / 5201 4347 / 4347 1840 / 1840 Output Total 2400 / 2400 700 / 700 Balance 1495 / 1495 4501 / 4501 4347 / 4347 1840 / 1840 Physical Exam Oriented: Normal Eyes: Normal Ear: Normal Nose: Normal Throat: Normal Respiratory: Normal Cardiovascular: Normal : Normal Auscultation: Bowel Sounds: Normal Tenderness: Normal Skin: Wound (1CMX2.5CM SCABBED OVER WOUND ) Musculoskeletal: Right, Foot and Tender Psychiatric: Normal Mood Description: Calm Affect: Normal Speech Pattern: Clear and Appropriate Laboratory and Diagnostics Result Diagrams: 06/17/22 05:12 06/17/22 05:12 Labs: 06/14/22 09:00 Catheter Tip - Other - Final Strep Mitis (Viridans Strep) 06/14/22 10:51 Foot - Right Wound Gram Stain - Final 06/14/22 10:51 Foot - Right Wound Culture - Preliminary Laboratory WBC 4.7 X10^3/uL (3.6-10.0) 06/17/22 05:12 RBC 3.95 X10^6/uL (4.7-6.0) L 06/17/22 05:12 Hgb 12.5 g/dL (13.5-18.0) L 06/17/22 05:12 Hct 36.1 % (42.0-54.0) L 06/17/22 05:12 MCV 91.3 fL (80.0-100.0) 06/17/22 05:12 MCH 31.6 pg (27.0-34.0) 06/17/22 05:12 MCHC 34.6 g/dL (33.0-35.0) 06/17/22 05:12 RDW 13.4 % (11.6-16.5) 06/17/22 05:12 Plt Count 105 X10^3/uL (150.0-450.0) L 06/17/22 05:12 Plt Count Comment Decreased (ADEQUATE) 06/13/22 19:33 MPV 8.5 fL (7.4-11.0) 06/17/22 05:12 Neut % (Auto) 59.7 % (42.0-75.0) 06/17/22 05:12 Lymph % (Auto) 26.8 % (21.0-51.0) 06/17/22 05:12 [place] % (Auto) 8.9 % (0.0-13.0) 06/17/22 05:12 Eos % (Auto) 3.8 % (0.9-2.9) H 06/17/22 05:12 Baso % (Auto) 0.8 % (0.2-1.0) 06/17/22 05:12 Neut # (Auto) 2.8 x10^3/uL (2.2-4.8) 06/17/22 05:12 Lymph # (Auto) 1.3 X10^3/uL (1.3-2.9) 06/17/22 05:12 [place] # (Auto) 0.4 x10^3/uL (0.3-0.8) 06/17/22 05:12 Eos # (Auto) 0.2 x10^3/uL (0.0-0.2) 06/17/22 05:12 Baso # (Auto) 0.0 X10^3/uL (0.0-0.1) 06/17/22 05:12 Absolute Nucleated RBC 0.0 /100WBC 06/17/22 05:12 Total Counted 100 06/13/22 19:33 Neutrophils % (Manual) 93 % (39-76) H 06/13/22 19:33 Lymphocytes % (Manual) 4 % (13-43) L 06/13/22 19:33 Monocytes % (Manual) 3 % (4-9) L 06/13/22 19:33 Plt Morphology Comment Normal (NORMAL) 06/13/22 19:33 RBC Morphology Normal (NORMAL) 06/13/22 19:33 Sodium 139 mmol/L (136-145) 06/17/22 05:12 Corrected Sodium TNP 06/17/22 05:12 Potassium 4.1 mmol/L (3.5-5.1) 06/17/22 05:12 Chloride 105 mmol/L (98-107) 06/17/22 05:12 Carbon Dioxide 29.2 mmol/L (21-32) 06/17/22 05:12 BUN 15 mg/dL (7-18) 06/17/22 05:12 Creatinine 0.92 mg/dL (0.70-1.30) 06/17/22 05:12 Est GFR (MDRD) Af Amer > 60 (>60) 06/17/22 05:12 Est GFR (MDRD) Non-Af > 60 (>60) 06/17/22 05:12 Glucose 96 mg/dL (65-99) 06/17/22 05:12 POC Glucose (mg/dL) 112 mg/dL (65-99) H 06/14/22 15:47 Hemoglobin A1c 5.7 % 06/14/22 04:05 Lactic Acid 2.0 mmol/L (0.4-2.0) 06/14/22 08:50 Calcium 8.0 mg/dL (8.5-10.1) L 06/17/22 05:12 Corrected Calcium 9.0 mg/dL (8.5-10.1) 06/17/22 05:12 Magnesium 2.3 mg/dL (1.7-2.9) 06/14/22 08:50 Total Bilirubin 0.40 mg/dL (0.2-1.0) 06/17/22 05:12 AST 61 Units/L (15-37) H 06/17/22 05:12 ALT 85 Units/L (12-78) H 06/17/22 05:12 Alkaline Phosphatase 300 Units/L (46-116) H 06/17/22 05:12 C-Reactive Protein 29.30 mg/L (0-3.0) H 06/17/22 05:12 Total Protein 5.9 g/dL (6.4-8.2) L 06/17/22 05:12 Albumin 2.8 g/dL (3.4-5.0) L 06/17/22 05:12 Globulin 3.1 g/dL (2.5-4.5) 06/17/22 05:12 Albumin/Globulin Ratio 0.9 Ratio (1.1-2.1) L 06/17/22 05:12 Specimen Type Clean catch urine 06/13/22 21:00 Urine Color Elsa (YELLOW) 06/13/22 21:00 Urine Appearance Cloudy (CLEAR) 06/13/22 21:00 Urine pH 6.0 (5.0 - 8.0) 06/13/22 21:00 Ur Specific [place] 1.030 (1.000-1.030) 06/13/22 21:00 Urine Protein 3+ (NEGATIVE) 06/13/22 21:00 Urine Glucose (UA) Negative (NEGATIVE) 06/13/22 21:00 Urine Ketones Negative (NEGATIVE) 06/13/22 21:00 Urine Blood 1+ (NEGATIVE) 06/13/22 21:00 Urine Nitrite Negative (NEGATIVE) 06/13/22 21:00 Urine Bilirubin 1+ (NEGATIVE) 06/13/22 21:00 Urine Urobilinogen 2+ (NORMAL) 06/13/22 21:00 Ur Leukocyte Esterase Negative (NEGATIVE) 06/13/22 21:00 Urine RBC 0-2 /HPF (0-3) 06/13/22 21:00 Urine WBC None seen /HPF (0-5) 06/13/22 21:00 Ur Squamous Epith Cells Rare /HPF (NEGATIVE) 06/13/22 21:00 Amorphous Sediment 3+ /HPF (NEGATIVE) 06/13/22 21:00 Urine Bacteria Trace /HPF (NEGATIVE) 06/13/22 21:00 Hyaline Casts Many /LPF (NEGATIVE) 06/13/22 21:00 Granular Casts Many /LPF (NEGATIVE) 06/13/22 21:00 Ur Culture Indicated? No/not indicated 06/13/22 21:00 Vancomycin Trough 9.4 ug/mL (15-20) L 06/16/22 21:15 SARS-CoV-2 (PCR) Negative (NEGATIVE) 06/13/22 19:37 Influenza Type A (PCR) Negative (NEGATIVE) 06/13/22 19:37 Influenza Type B (PCR) Negative (NEGATIVE) 06/13/22 19:37 RSV (PCR) Negative (NEGATIVE) 06/13/22 19:37 Plan (1) Sepsis: Status: Acute Qualifiers: Sepsis type: sepsis due to unspecified organism Sepsis acute organ dysfunction status: unspecified Qualified Code(s): A41.9 - Sepsis, unspecified organism Plan: ADMIT, NORMAL SALINE AT 125 ML/HR, ZOSYN 3.375G IV TID, VANCOMYCIN 1G IV Q12H, DOPAMINE DRIP, THE POTASSIUM AND MAGENSIUM PROTOCOLS, ZOFRAN 4MG IV Q8H PRN, AND HIS HOME MEDICATIONS WERE RESUMED. (2) Acute hypotension: Status: Acute (3) Acute hypokalemia: Status: Acute (4) Hyponatremia: Status: Acute (5) Nausea and vomiting: Status: Acute Plan: As needed Zofran and Phenergan.
[2022-06-17] MEDS ORDERED: LEXAPRO ONE (20:06)
[2022-06-17] MEDS ORDERED: LEXAPRO PO SCH (21:00)
[2022-06-17] MEDS: MELATONIN PO SCH (22:28)
[2022-06-18] MEDS: NS 1,000 ML IV 1,000 ML IV SCH ×2 (00:26→08:14)
[2022-06-18 05:51] LABS: BASOPHILS % (AUTO) 0.8 % (0.2-1.0); EOSINOPHILS # (AUTO) 0.3 x10^3/uL (0.0-0.2); EOSINOPHILS % (AUTO) 4.7 % (0.9-2.9); HEMATOCRIT 36.6 % (42.0-54.0); HEMOGLOBIN 12.6 g/dL (13.5-18.0); LYMPHOCYTES # (AUTO) 1.4 X10^3/uL (1.3-2.9); LYMPHOCYTES % (AUTO) 24.7 % (21.0-51.0); MEAN CORPUSCULAR HEMOGLOBIN 31.4 pg (27.0-34.0); MEAN CORPUSCULAR HGB CONC 34.4 g/dL (33.0-35.0); MEAN CORPUSCULAR VOLUME 91.2 fL (80.0-100.0); MONOCYTES # (AUTO) 0.4 x10^3/uL (0.3-0.8); MONOCYTES % (AUTO) 7.1 % (0.0-13.0); NEUTROPHILS # (AUTO) 3.6 x10^3/uL (2.2-4.8); NEUTROPHILS % (AUTO) 62.7 % (42.0-75.0); RED BLOOD COUNT 4.01 X10^6/uL (4.7-6.0); RED CELL DISTRIBUTION WIDTH 13.5 % (11.6-16.5); WHITE BLOOD COUNT 5.7 X10^3/uL (3.6-10.0)
[2022-06-18 06:08] LABS: ALANINE AMINOTRANSFERASE 77 Units/L (12-78); ALBUMIN 2.8 g/dL (3.4-5.0); ALKALINE PHOSPHATASE 302 Units/L (46-116); ASPARTATE AMINO TRANSFERASE 49 Units/L (15-37); BLOOD UREA NITROGEN 12 mg/dL (7-18); CALCIUM 7.8 mg/dL (8.5-10.1); CARBON DIOXIDE 26.2 mmol/L (21-32); CHLORIDE 106 mmol/L (98-107); COR CA(FOR HYPOALB) 8.8 mg/dL (8.5-10.1); CREATININE 0.76 mg/dL (0.70-1.30); SODIUM 140 mmol/L (136-145); TOTAL PROTEIN 5.9 g/dL (6.4-8.2); eGFR NON BLACK RACES > 60 (>60)
[2022-06-18] MEDS: FIORICET TAB PO PRN (08:05)
[2022-06-18 08:09] VITALS: BP 149/72
[2022-06-18] MEDS: LOVENOX INJ 40 MG SYR SC SCH (08:12)
[2022-06-18] MEDS: VANCOMYCIN IV *PREMIX 1.5 G/300 ML BAG 1.5 G/300 ML PIGGYBACK IV SCH (08:13)
[2022-06-18] MEDS: Atrovent NEB TX 0.02% NEB SCH (08:55)
[2022-06-18] MEDS ORDERED: LEXAPRO PO SCH (09:00)
[2022-06-18] MEDS: LEVAQUIN PREMIX IV 750 MG 750 MG/150 ML BAG IV SCH (11:37)
--- NOTE | 2022-06-18 11:55 | PCM.PROG ---
Progress Note - Progress Note for Day of Date of Exam: 06/15/22 - Subjective Subjective: IS CURRENTLY INPATIENT STATUS FOR TREATMENT OF SEPSIS, ACUTE HYPOTENSION, HYPOKALEMIA, AND HYPONATREMIA. TODAY, HE IS ALERT AND ORIENTED, LYING IN BED ON MORNING ROUNDS. HE COMPLAINS OF INTERMITTENT RIGHT FOOT PAIN AND WEAKNESS. HE ALSO REPORTS SHORTNESS OF BREATH AT TIMES. HE REMAINS IN THE INTENSIVE CARE UNIT THIS MORNING. THE DOPAMINE DRIP HAS BEEN PAUSED SINCE YESTERDAY AND HIS BLOOD PRESSURE HAS BEEN STABLE. ON EXAMINATION, HEART IS REGULAR IN RATE AND RHYTHM. BILATERAL LUNGS ARE NOTED WITH DIMINISHED LUNG SOUNDS THROUGHOUT. ABDOMEN IS ROUND, SOFT, AND NON-TENDER WITH NORMAL BOWEL SOUNDS NOTED IN ALL QUADRANTS. SCABBED OVER WOUND NOTED TO THE RIGHT HEEL. NO ACTIVE DRAINAGE IS NOTED AT THIS TIME. NO UPPER OR LOWER EXTREMITY EDEMA NOTED. HIS VITALS THIS MORNING ARE: 98.3-63-25-93%-130/74. LABS WERE OBTAINED. WBC 4.1, RBC 3.97, HGB 12.6, HCT 36.3, PLT COUNT 90, SODIUM 138, POTASSIUM 4.2, CHLORIDE 105, BUN 13, CREATININE 0.85, GLUCOSE 89, CALCIUM 7.5, AST 68, ALT 76, ALK PHOS 167, CRP 96.80, TOTAL PROTEIN 5.6, ALBUMIN 2.6. PICC LINE WAS REMOVED YESTERDAY AND THE TIP OF LINE WAS CULTURED. PICC LINE CULTURE, BLOOD CULTURES, AND WOUND CULTURE PENDING. PRELIMINARY BLOOD CULTURES REVEAL GRAM NEGATIVE RODS. HE IS CURRENTLY RECEIVING NORMAL SALINE AT 125 ML/HR, ZOSYN 3.375G IV TID, VANCOMYCIN 1G IV Q12H, DOPAMINE DRIP, THE POTASSIUM AND MAGENSIUM PROTOCOLS, ZOFRAN 4MG IV Q8H PRN, AND HIS HOME MEDICATIONS WERE RESUMED. TODAY, WE WILL DISCONTINUE THE ZOSYN AND START LEVAQUIN 750MG IV DAILY. OTHERWISE, WE WILL CONTINUE WITH CURRENT PLAN OF CARE. WE WILL ORDER A CHEST XRAY. OTHERWISE, WE PLAN TO FOLLOW- UP WITH AM LABS AND CONTINUE TO MONITOR. TIME SPENT ON CLINICAL ASSESSMENT, REVIWING LABS AND IMAGING, DECISION MAKING, AND DOCUMENTATION GREATER THAN 45 MINUTES. - Past Medical Family Social History Past Med/Fam/Surg Hx: No changes since H&P Allergies: Allergies sulfamethoxazole [From Bactrim] Adverse Reaction (Verified 04/28/20 11:42) trimethoprim [From Bactrim] Adverse Reaction (Verified 04/28/20 11:42) - Review of Systems ROS: No change since H&P - Vital Signs and I&O's Vital Signs: Temperature 97.7 F Pulse Rate [Left] 54 Pulse Rate 88 Respiratory Rate 20 Blood Pressure [Left Arm] 149/72 Blood Pressure 126/73 O2 Sat by Pulse Oximetry 96 Intake and Output: Intake & Output 06/15/22 06/16/22 06/17/22 06/18/22 11:59 11:59 11:59 11:59 Intake Total 3895 / 3895 5201 / 5201 4347 / 4347 4720 / 4720 Output Total 2400 / 2400 700 / 700 Balance 1495 / 1495 4501 / 4501 4347 / 4347 4720 / 4720 - Physical Exam Oriented: Normal Eyes: Normal Ear: Normal Nose: Normal Throat: Normal Respiratory: Normal Cardiovascular: Normal : Normal Auscultation: Bowel Sounds: Normal Palpation: Normal Tenderness: Normal Skin: Wound (1CMX2.5CM SCABBED OVER WOUND) Musculoskeletal: Right, Foot, Tender Psychiatric: Normal Mood Description: Calm Affect: Normal Speech Pattern: Clear, Appropriate - Laboratory and Diagnostics Result Diagrams: 06/18/22 05:06 06/18/22 05:06 Labs: 06/14/22 09:00 Catheter Tip - Other - Final Strep Mitis (Viridans Strep) 06/14/22 10:51 Foot - Right Wound Gram Stain - Final 06/14/22 10:51 Foot - Right Wound Culture - Preliminary Laboratory WBC 5.7 X10^3/uL (3.6-10.0) 06/18/22 05:06 RBC 4.01 X10^6/uL (4.7-6.0) L 06/18/22 05:06 Hgb 12.6 g/dL (13.5-18.0) L 06/18/22 05:06 Hct 36.6 % (42.0-54.0) L 06/18/22 05:06 MCV 91.2 fL (80.0-100.0) 06/18/22 05:06 MCH 31.4 pg (27.0-34.0) 06/18/22 05:06 MCHC 34.4 g/dL (33.0-35.0) 06/18/22 05:06 RDW 13.5 % (11.6-16.5) 06/18/22 05:06 Plt Count 117 X10^3/uL (150.0-450.0) L 06/18/22 05:06 Plt Count Comment Decreased (ADEQUATE) 06/13/22 19:33 MPV 9.0 fL (7.4-11.0) 06/18/22 05:06 Neut % (Auto) 62.7 % (42.0-75.0) 06/18/22 05:06 Lymph % (Auto) 24.7 % (21.0-51.0) 06/18/22 05:06 [place] % (Auto) 7.1 % (0.0-13.0) 06/18/22 05:06 Eos % (Auto) 4.7 % (0.9-2.9) H 06/18/22 05:06 Baso % (Auto) 0.8 % (0.2-1.0) 06/18/22 05:06 Neut # (Auto) 3.6 x10^3/uL (2.2-4.8) 06/18/22 05:06 Lymph # (Auto) 1.4 X10^3/uL (1.3-2.9) 06/18/22 05:06 [place] # (Auto) 0.4 x10^3/uL (0.3-0.8) 06/18/22 05:06 Eos # (Auto) 0.3 x10^3/uL (0.0-0.2) H 06/18/22 05:06 Baso # (Auto) 0.0 X10^3/uL (0.0-0.1) 06/18/22 05:06 Absolute Nucleated RBC 0.1 /100WBC 06/18/22 05:06 Total Counted 100 06/13/22 19:33 Neutrophils % (Manual) 93 % (39-76) H 06/13/22 19:33 Lymphocytes % (Manual) 4 % (13-43) L 06/13/22 19:33 Monocytes % (Manual) 3 % (4-9) L 06/13/22 19:33 Plt Morphology Comment Normal (NORMAL) 06/13/22 19:33 RBC Morphology Normal (NORMAL) 06/13/22 19:33 Sodium 140 mmol/L (136-145) 06/18/22 05:06 Corrected Sodium TNP 06/18/22 05:06 Potassium 3.7 mmol/L (3.5-5.1) 06/18/22 05:06 Chloride 106 mmol/L (98-107) 06/18/22 05:06 Carbon Dioxide 26.2 mmol/L (21-32) 06/18/22 05:06 BUN 12 mg/dL (7-18) 06/18/22 05:06 Creatinine 0.76 mg/dL (0.70-1.30) 06/18/22 05:06 Est GFR (MDRD) Af Amer > 60 (>60) 06/18/22 05:06 Est GFR (MDRD) Non-Af > 60 (>60) 06/18/22 05:06 Glucose 96 mg/dL (65-99) 06/18/22 05:06 POC Glucose (mg/dL) 112 mg/dL (65-99) H 06/14/22 15:47 Hemoglobin A1c 5.7 % 06/14/22 04:05 Lactic Acid 2.0 mmol/L (0.4-2.0) 06/14/22 08:50 Calcium 7.8 mg/dL (8.5-10.1) L 06/18/22 05:06 Corrected Calcium 8.8 mg/dL (8.5-10.1) 06/18/22 05:06 Magnesium 2.3 mg/dL (1.7-2.9) 06/14/22 08:50 Total Bilirubin 0.30 mg/dL (0.2-1.0) 06/18/22 05:06 AST 49 Units/L (15-37) H 06/18/22 05:06 ALT 77 Units/L (12-78) 06/18/22 05:06 Alkaline Phosphatase 302 Units/L (46-116) H 06/18/22 05:06 C-Reactive Protein 19.00 mg/L (0-3.0) H 06/18/22 05:06 Total Protein 5.9 g/dL (6.4-8.2) L 06/18/22 05:06 Albumin 2.8 g/dL (3.4-5.0) L 06/18/22 05:06 Globulin 3.1 g/dL (2.5-4.5) 06/18/22 05:06 Albumin/Globulin Ratio 0.9 Ratio (1.1-2.1) L 06/18/22 05:06 Specimen Type Clean catch urine 06/13/22 21:00 Urine Color Elsa (YELLOW) 06/13/22 21:00 Urine Appearance Cloudy (CLEAR) 06/13/22 21:00 Urine pH 6.0 (5.0 - 8.0) 06/13/22 21:00 Ur Specific [place] 1.030 (1.000-1.030) 06/13/22 21:00 Urine Protein 3+ (NEGATIVE) 06/13/22 21:00 Urine Glucose (UA) Negative (NEGATIVE) 06/13/22 21:00 Urine Ketones Negative (NEGATIVE) 06/13/22 21:00 Urine Blood 1+ (NEGATIVE) 06/13/22 21:00 Urine Nitrite Negative (NEGATIVE) 06/13/22 21:00 Urine Bilirubin 1+ (NEGATIVE) 06/13/22 21:00 Urine Urobilinogen 2+ (NORMAL) 06/13/22 21:00 Ur Leukocyte Esterase Negative (NEGATIVE) 06/13/22 21:00 Urine RBC 0-2 /HPF (0-3) 06/13/22 21:00 Urine WBC None seen /HPF (0-5) 06/13/22 21:00 Ur Squamous Epith Cells Rare /HPF (NEGATIVE) 06/13/22 21:00 Amorphous Sediment 3+ /HPF (NEGATIVE) 06/13/22 21:00 Urine Bacteria Trace /HPF (NEGATIVE) 06/13/22 21:00 Hyaline Casts Many /LPF (NEGATIVE) 06/13/22 21:00 Granular Casts Many /LPF (NEGATIVE) 06/13/22 21:00 Ur Culture Indicated? No/not indicated 06/13/22 21:00 Vancomycin Trough 9.4 ug/mL (15-20) L 06/16/22 21:15 SARS-CoV-2 (PCR) Negative (NEGATIVE) 06/13/22 19:37 Influenza Type A (PCR) Negative (NEGATIVE) 06/13/22 19:37 Influenza Type B (PCR) Negative (NEGATIVE) 06/13/22 19:37 RSV (PCR) Negative (NEGATIVE) 06/13/22 19:37 - Plan (1) Sepsis Status: Acute Qualifiers: Sepsis type: sepsis due to unspecified organism Sepsis acute organ dysfunction status: unspecified Qualified Code(s): A41.9 - Sepsis, unspecified organism Plan: VANCOMYCIN 1G IV Q12H, LEVAQUIN 750MG IV DAILY, THE POTASSIUM AND MAGENSIUM PROTOCOLS, ZOFRAN 4MG IV Q8H PRN, AND HIS HOME MEDICATIONS WERE RESUMED. (2) Acute hypotension Status: Acute (3) Acute hypokalemia Status: Acute (4) Hyponatremia Status: Resolved
--- NOTE | 2022-06-18 12:32 | RAD ---
HISTORYPICC LINE PLACEMENTSTUDYCHEST, 1 [id number].[id number] view of the chestFINDINGSLeft upper extremity PICC line in good position. [The cardiac and mediastinal contours are within normal limits. The lungs are clear without focal consolidation or segmental collapse. No pleural effusion or pneumothorax.]IMPRESSIONLeft upper extremity PICC line in good position. No pneumothorax.Electronically signed by: Matthew Zabala (Jun 18, 2022 12:30:06)
--- NOTE | 2022-06-18 13:16 | DR.UPDATE ---
H&P Update History and Physical Update: History and Physical reviewed and patient examined. Changes noted: NO Yes with the following:will place picc for abx therappy H&P Reviewed: Yes Patient was examined?: Yes Procedures (ALL) - Central Line Placement PCM.CLCO: written consent Time out performed: Yes Patient placed pm monitor/pulse ox: Yes MD prep: mask, gown, gloves, other Centrial line prep: chlorhexidine scrub, sterile drapes applied Local anesthsia used: lidocane 1% Ultrasound used for placement: Yes (left brachial id'd via u/s. cephalic very small) Central line lumen ininserted: double (5.5fr arrow picc) Post procedure: good blood return, all ports aspirated, flushed,capped, sterile dressing applied Post procedure xray: tip oc catheter in good position, no pneumothorax seen Patient tolerated procedure: Yes Complications: none
[2022-06-18] MEDS ORDERED: PHARMACY COMMENT IV NR (20:30)
== END 2022-06-18 13:30 | disposition home or self-care (01) | DRG 872 ==
LOC: ER 19:16 → ICU 22:47 → MED/SURG 06-15 15:14
PROVIDERS: ADMIT Internal Medicine; ATTEND Internal Medicine
DX: A40.1 Sepsis due to streptococcus, group B; R11.2 Nausea with vomiting, unspecified; Z20.822 Contact with and (suspected) exposure to COVID-19; I95.89 Other hypotension; E78.2 Mixed hyperlipidemia; R79.82 Elevated C-reactive protein (CRP); R06.02 Shortness of breath; R51.9 Headache, unspecified